=== PATIENT | female | born 1990 | race Caucasian/White ===

== ENCOUNTER 2016-06-20 08:09 | Emergency (ER) | payer BC ==
[2016-06-20 08:13] VITALS: BP 151/90
[2016-06-20] MEDS ORDERED: predniSONE TAB* 20 MG PO ONE (08:26)
[2016-06-20] MEDS ORDERED: Ibuprofen TAB* 400 MG PO ONE (08:26)
[2016-06-20] MEDS ORDERED: Acetaminophen TAB* 325 MG PO ONE (08:26)
--- NOTE | 2016-06-20 09:12 | ED ---
Nataliia Bro Janilya, scribed for Lyndsey Martinez MD on 06/20/16 at 0825 . Throat Pain/Nasal Congestion - HPI Summary HPI Summary: A 25 y/o female came in to [facility] presenting w/ a gradual onset of constant sore throat starting last night. Pt also reports low grade fever of 99.2 F. Pt denies cough, runny nose, ear pain, dental pain. Pt states it feels like strep throat. - History of Current Complaint Chief Complaint: EDThroatPain Time Seen by Provider: 06/20/16 08:13 Hx Obtained From: Patient Onset/Duration: Gradual Onset, Lasting Days, Still Present Severity: Moderate Cough: None - Allergies/Home Medications Allergies/Adverse Reactions: Allergies Allergy/AdvReac Type Severity Reaction Status Date / Time Amoxicillin Allergy Rash Verified 06/20/16 08:20 PMH/Surg Hx/FS Hx/Imm Hx Previously Healthy: Yes Endocrine/Hematology History: Denies: Hx Anticoagulant Therapy, Hx Diabetes, Hx Thyroid Disease Cardiovascular History: Denies: Hx Hypertension, Hx Pacemaker/ICD Respiratory History: Reports: Other Respiratory Problems/Disorders - hx mono Denies: Hx Asthma, Hx Chronic Obstructive Pulmonary Disease (COPD) GI History: Denies: Hx Ulcer History: Denies: Hx Renal Disease Sensory History: Denies: Hx Contacts or Glasses, Hx Hearing Aid Opthamlomology History: Denies: Hx Contacts or Glasses Neurological History: Reports: Other Neuro Impairments/Disorders - mono Denies: Hx Dementia, Hx Seizures Psychiatric History: Denies: Hx Panic Disorder, Hx Substance Abuse - Immunization History Date of Tetanus Vaccine: unknown Date of Influenza Vaccine: unknown Infectious Disease History: No Infectious Disease History: Denies: Hx Hepatitis, Hx Human Immunodeficiency Virus (HIV), Traveled Outside the [place] in Last 30 Days - Family History Known Family History: Negative: Cardiac Disease, Hypertension, Diabetes - Social History Occupation: Employed Full-time Lives: With Family Alcohol Use: None Substance Use Type: Reports: None Hx Tobacco Use: Yes Smoking Status (MU): Light Every Day Tobacco Smoker Type: Cigarettes Review of Systems Positive: Fever Positive: Sore Throat. Negative: Dental Pain, Ear Ache, Nasal Discharge Negative: Cough All Other Systems Reviewed And Are Negative: Yes Physical Exam Triage Information Reviewed: Yes Vital Signs On Initial Exam: Initial Vitals Temp Pulse Resp BP Pulse Ox 97.3 F 118 16 151/90 100 06/20/16 08:11 06/20/16 08:11 06/20/16 08:11 06/20/16 08:11 06/20/16 08:11 Vital Signs Reviewed: Yes Appearance: Positive: Well-Appearing, No Pain Distress Skin: Positive: Warm, Skin Color Reflects Adequate Perfusion, Dry Eyes: Positive: EOMI, EDDIE ENT: Positive: Pharynx normal, TMs normal. Negative: Tonsillar swelling, Tonsillar exudate Neck: Positive: Supple, Nontender, Other: - Mild lymphadenopathy submental. No posterior lymphadenopathy.. Negative: No Lymphadenopathy Respiratory/Lung Sounds: Positive: Clear to Auscultation, Breath Sounds Present. Negative: Rales, Rhonchi, Wheezes Cardiovascular: Positive: RRR. Negative: Murmur, Rub, Other - no gallops Abdomen Description: Positive: Nontender, Soft. Negative: Distended, Guarding Bowel Sounds: Positive: Present Musculoskeletal: Positive: Strength/ROM Intact. Negative: Edema Left, Edema Right Neurological: Positive: Sensory/Motor Intact, Alert, Oriented to Person Place, Time, CN Intact II-III Psychiatric: Positive: Affect/Mood Appropriate Diagnostics - Vital Signs Vital Signs Temp Pulse Resp BP Pulse Ox 06/20/16 08:11 97.3 F 118 16 151/90 100 - Laboratory Lab Results: Lab Results 06/20/16 Range/Units 08:34 Group A Strep Rapid Negative (Negative) Lab Statement: Any lab studies that have been ordered have been reviewed, and results considered in the medical decision making process. EENT Course/Dx - Course Course Of Treatment: pt with neg strep given one dose of steroids here ok to follow up with pmd - Diagnoses Provider Diagnoses: Pharyngitis Discharge - Discharge Plan Condition: Stable Disposition: HOME The documentation as recorded by the Nataliia manuel Janilya accurately reflects the service I personally performed and the decisions made by me, Lyndsey Martinez MD.
== END 2016-06-20 09:23 | disposition home or self-care (01) ==
LOC: ED 08:09
DX: J02.9 Acute pharyngitis, unspecified (principal); R50.9 Fever, unspecified; F17.210 Nicotine dependence, cigarettes, uncomplicated
CPT/HCPCS: 87651; 99282; A9270-GY; J7512

== ENCOUNTER 2017-03-12 09:12 | Emergency (ER) | payer BC ==
[2017-03-12 09:38] VITALS: BP 116/65
--- NOTE | 2017-03-13 17:46 | UC ---
Trinity Bro Thomas, scrib[facility] for [facility] on 03/12/17 at 0919 . Throat Pain/Nasal Kapil HPI - HPI Summary HPI Summary: In Room Note: The patient is a 26 year old female presenting to Urgent Care complaining of a sore throat for the last 3-4 days. The pain is aggravated by swallowing and is alleviated by nothing. The patient has treated the sore throat with Advil and bob seltzer prior to arrival. Pt additionally complains of nasal discharge, head congestion, and cough with green production. Note: 26 year old female with a sore throat. Review of visit history shows multiple visits for sore throat including May 2016, with a negative Rapid Strep at that time. History of [place]. She is allergic to amoxicillin. VSS, afebrile, Pulse Ox 98. Patient is a smoker, URI symptoms including sore throat. Nurses Note: c/o stuffy nose, head congestion, and sore throat for a few days. she has been taking bob seltzer and advil. - History of Current Complaint Stated Complaint: THROAT PAIN Time Seen by Provider: 03/12/17 09:17 Hx Obtained From: Patient Hx Last Menstrual Period: 2 weeks ago Onset/Duration: Lasting Days - 3-4, Still Present Severity: Moderate Cough: Productive Associated Signs & Symptoms: Positive: Nasal Discharge, Other - head congestion , cough with green production Related History: Smoking - Allergies/Home Medications Allergies/Adverse Reactions: Allergies Allergy/AdvReac Type Severity Reaction Status Date / Time Amoxicillin Allergy Rash Verified 03/12/17 09:37 Home Medications: Home Medications NK [No Home Medications Reported] 03/12/17 [History Confirmed 03/12/17] PMH/Surg Hx/FS Hx/Imm Hx Previously Healthy: Yes - NEGATIVE: DM, HTN Other History Of: Negative For: Anticoagulant Therapy - Surgical History Surgical History: None - Family History Known Family History: Negative: Cardiac Disease, Hypertension, Diabetes - Social History Occupation: Employed Full-time Lives: With Family Alcohol Use: None Substance Use Type: None Smoking Status (MU): Light Every Day Tobacco Smoker Type: Cigarettes Review of Systems ENT: Sore Throat, Nasal Discharge, Other - Head congestion Respiratory: Cough - with green production Is Patient Immunocompromised?: No All Other Systems Reviewed And Are Negative: Yes - Comments Additional Review of Systems Comments: A 12 point review of systems was completed and significantly positive for: cough , sore throat, nasal discharge, nasal congestion. The remainder of the review was negative except as stated above in the HPI. Physical Exam Triage Information Reviewed: Yes Vital Signs: Initial Vital Signs Temp 98.4 F 03/12/17 09:35 Pulse 90 03/12/17 09:35 Resp 16 03/12/17 09:35 BP 116/65 03/12/17 09:35 Pulse Ox 98 03/12/17 09:35 Vital Signs Reviewed: Yes Eye Exam: Normal ENT: Positive: Other - The throat has mild erythema. There is no exudate. Dental Exam: Normal Neck exam: Normal Neck: Positive: 1 Respiratory Exam: Normal Cardiovascular Exam: Normal Cardiovascular: Positive: Other: - The lungs are clear to auscultation. Abdominal Exam: Normal Musculoskeletal Exam: Normal Neurological Exam: Normal Psychological Exam: Normal Skin Exam: Normal Throat Pain/Nasal Course/Dx - Course Course Of Treatment: Normal BP reading and no follow-up instructions required. Rapid Strep is negative. Medications have been included in the original chart and reviewed. - Differential Dx/Diagnosis Differential Diagnosis/HQI/PQRI: Other - URI vs Strep Throat Provider Diagnoses: URI Discharge - Discharge Plan Condition: Stable Disposition: HOME Patient Education Materials: Upper Respiratory Infection (ED) Referrals: No Primary Care Phys,NOPCP [Primary Care Provider] - Additional Instructions: Thank you for helping us improve patient care by filling out the My Point Survey. WE DISCUSSED: 1. Your rapid strep was negative. 2. You have a viral illness. This should go away over the next 10 days. Try to stop smoking. 3. See instructions below. PLEASE SEEK CARE AT THE EMERGENCY DEPARTMENT IF SYMPTOMS WORSEN OR IF NEW SYMPTOMS DEVELOP. FOLLOW UP WITH YOUR PRIMARY CARE PHYSICIAN. USEFUL WAYS TO FEEL BETTER WITHOUT MEDICATIONS: STAND UNDER SHOWER STREAM TO LOOSEN SECRETIONS. USE A VAPORIZOR. STAY AWAY FROM ANY SMOKE OR IRRITANTS. USE SALINE NASAL SPRAY TO KEEP FLOW OF MUCOUS FROM NOSTRILS AND SINUSES. CONSIDER USING NETI POT TO HELP WITH ALLERGIES AND CONGESTION IN THE NOSE. USE THIS THREE TIMES A WEEK. YOU CAN GET THIS AT [facility] IN [place] OR VARIOUS DRUGSTORES. DRINK LOTS OF WARM FLUIDS USEFUL HOME REMEDIES: WARM WATER GARGLES, WITH TSP OF SALT PER 8 OUNCES OF WATER, GARGLE FOR A FEW SECONDS AND SPIT OUT; GARGLE AND SPIT OUT; EVERY THREE HOURS. AND/OR: WARM WATER OR TEA, HONEY AND LEMON; 2-3 CUPS A DAY. FOR SORE THROAT: KEEP THROAT MOIST WITH LOZENGES; TEA AND HONEY. USE WARM WATER GARGLES 3-4 TIMES A DAY. FOLLOW UP: RE-CHECK IN 1O DAYS, NEEDED, IF YOU ARE NOT IMPROVING. RETURN HERE OR SEE YOUR PHYSICIAN. RE-CHECK SOONER IF INCREASED PAIN OR TEMPERATURE. The documentation as recorded by the Trinity manuel Thomas accurately reflects the service I personally performed and the decisions made by me, Harvinder Mays MD.
== END 2017-03-12 10:21 | disposition home or self-care (01) ==
LOC: UCEAST 09:12
DX: J06.9 Acute upper respiratory infection, unspecified (principal); F17.210 Nicotine dependence, cigarettes, uncomplicated
CPT/HCPCS: 87651; 99211; G0463

== ENCOUNTER 2017-11-15 19:11 | Emergency (ER) | payer SELFPAY ==
[2017-11-15 20:35] LABS: ABS Basophils 0.1 10^3/ul (0-0.2); ABS Eosinophils 0.3 10^3/ul (0-0.6); ABS Lymphocytes 2.9 10^3/ul (1.0-4.8); ABS Monocytes 0.6 10^3/ul (0-0.8); ABS Neutrophils 7.7 10^3/ul (1.5-7.7); ABS Nucleated RBC 0 10^3/ul; Eosinophil % 2.8 % (0-6); Hematocrit 45 % (35-47); Hemoglobin 15.5 g/dl (12.0-16.0); Lymphocyte % 25.1 % (25-47); Mean Corpuscular HGB Conc 35 g/dl (31-36); Mean Corpuscular Hemoglobin 34 pg (27-31); Mean Corpuscular Volume 97 fL (80-97); Mean Platelet Volume 10.2 um3 (7.4-10.4); Nucleated Red Blood Cells % 0.1; Platelet Count 171 10^3/ul (150-450); Red Blood Count 4.64 10^6/ul (4.00-5.40); Red Cell Distribution Width 13 % (10.5-15); White Blood Count 11.6 10^3/ul (3.5-10.8)
[2017-11-15 20:53] LABS: EGFR Non-African American 88.6 (>60)
--- NOTE | 2017-11-15 22:43 | RAD ---
EXAM: US Pelvis, Transvaginal CLINICAL HISTORY: 26 years old, female; Pain; Pelvic pain; Patient HX: Llq pain for 2 days TECHNIQUE: Real-time transvaginal pelvic ultrasound (complete) with image documentation. Transvaginal imaging was used for better evaluation of the endometrium and adnexa. COMPARISON: No relevant prior studies available. FINDINGS: Uterus/cervix: Anteverted anteflexed. Measures 7.0 x 4.3 x 3.4 cm (53 cc). No myometrial masses. Late proliferative phase endometrium measuring 1.0 cm. Tiny volume endometrial canal fluid in the cervix. Right ovary: Right ovary measures 2.9 x 2.1 x 1.6 cm (5.1 cc). Normal size and echogenicity with no masses. Normal follicles. Normal arterial and venous waveforms. Left ovary: Left ovary measures 3.2 x 1.8 x 1.5 cm (4.5 cc). Normal size and echogenicity with no masses. Normal follicles. Normal arterial and venous waveforms. Normal blood flow. Free fluid: No free fluid. Bladder: Empty bladder which cannot be evaluated with this probe. IMPRESSION: Sonographically normal uterus and ovaries.
--- NOTE | 2017-11-15 22:59 | ED ---
Abdominal Pain/Female - HPI Summary HPI Summary: Patient complains of acute on chronic left lower quadrant pain for the past 2 days. Patient states pain is intermittent, rated 8 out of 10, worse with walking, described as sharp and crampy. History of same for one year, states pain usually goes away sooner than this. Patient also states chronic pain seems to be getting progressively worse. Denies fever, cough, sore throat, CP, SOB, N /V/D, ch. steff in urine, vaginal symptoms, change in BM, back pain. Drinking fluids normally, decreased appetite, as patient feels pain is worsened with food. Denies prior evaluation of this pain. Medical history is none. Abdominal/pelvic surgical history is none. LMP 1 week ago. - History of Current Complaint Chief Complaint: EDAbdPain Stated Complaint: ABD PAIN Time Seen by Provider: 11/15/17 20:30 Hx Obtained From: Patient Hx Last Menstrual Period: 2 weeks ago ?: No Onset/Duration: Sudden Onset Timing: Intermittent Episode Lasting Severity Initially: Severe Severity Currently: Severe Pain Intensity: 10 Pain Scale Used: 0-10 Numeric Location: Discrete At: LLQ Radiates: No Character: Sharp, Cramping Aggravating Factor(s): Food Alleviating Factor(s): Nothing Associated Signs and Symptoms: Positive: Negative Allergies/Adverse Reactions: Allergies Allergy/AdvReac Type Severity Reaction Status Date / Time amoxicillin Allergy Rash Verified 11/15/17 19:16 PMH/Surg Hx/FS Hx/Imm Hx Endocrine/Hematology History: Denies: Hx Anticoagulant Therapy, Hx Diabetes, Hx Thyroid Disease Cardiovascular History: Denies: Hx Hypertension, Hx Pacemaker/ICD Respiratory History: Reports: Other Respiratory Problems/Disorders - hx mono Denies: Hx Asthma, Hx Chronic Obstructive Pulmonary Disease (COPD) GI History: Denies: Hx Ulcer History: Denies: Hx Renal Disease Sensory History: Denies: Hx Contacts or Glasses, Hx Hearing Aid Opthamlomology History: Denies: Hx Contacts or Glasses Neurological History: Reports: Other Neuro Impairments/Disorders - mono Denies: Hx Dementia, Hx Seizures Psychiatric History: Denies: Hx Panic Disorder, Hx Substance Abuse - Immunization History Date of Tetanus Vaccine: unknown Date of Influenza Vaccine: unknown Infectious Disease History: No Infectious Disease History: Denies: Hx Hepatitis, Hx Human Immunodeficiency Virus (HIV), Traveled Outside the [place] in Last 30 Days - Family History Known Family History: Negative: Cardiac Disease, Hypertension, Diabetes - Social History Alcohol Use: None Substance Use Type: Reports: None Hx Tobacco Use: Yes Smoking Status (MU): Light Every Day Tobacco Smoker Type: Cigarettes Review of Systems Constitutional: Negative Eyes: Negative ENT: Negative Cardiovascular: Negative Respiratory: Negative Positive: Abdominal Pain Genitourinary: Negative Musculoskeletal: Negative Skin: Negative Neurological: Negative Psychological: Normal All Other Systems Reviewed And Are Negative: Yes Physical Exam - Summary Physical Exam Summary: Minimal pain with palpation of left lower quadrant. No pain with palpation of all other quadrants. Triage Information Reviewed: Yes Vital Signs On Initial Exam: Initial Vitals Temp Pulse Resp BP Pulse Ox 97.5 F 84 18 141/92 99 11/15/17 19:13 11/15/17 19:13 11/15/17 19:13 11/15/17 19:13 11/15/17 19:13 Vital Signs Reviewed: Yes Appearance: Positive: Well-Appearing Skin: Positive: Warm Head/Face: Positive: Normal Head/Face Inspection Eyes: Positive: Normal Neck: Positive: Supple Respiratory/Lung Sounds: Positive: Clear to Auscultation Cardiovascular: Positive: Normal Abdomen Description: Positive: Other: Musculoskeletal: Positive: Normal Neurological: Positive: Normal Psychiatric: Positive: Normal AVPU Assessment: Alert - Catrachito Coma Scale Best Eye Response: 4 - Spontaneous Best Motor Response: 6 - Obeys Commands Best Verbal Response: 5 - Oriented Coma Scale Total: 15 Diagnostics - Vital Signs Vital Signs Temp Pulse Resp BP Pulse Ox 11/15/17 19:13 97.5 F 84 18 141/92 99 - Laboratory Lab Results: Lab Results 11/15/17 11/15/17 11/15/17 Range/Units 20:29 20:29 20:29 WBC 11.6 H (3.5-10.8) 10^3/ul RBC 4.64 (4.00-5.40) 10^6/ul Hgb 15.5 (12.0-16.0) g/dl Hct 45 (35-47) % MCV 97 (80-97) fL MCH 34 H (27-31) pg MCHC 35 (31-36) g/dl RDW 13 (10.5-15) % Plt Count 171 (150-450) 10^3/ul MPV 10.2 (7.4-10.4) um3 Neut % (Auto) 65.9 (38-83) % Lymph % (Auto) 25.1 (25-47) % Rock % (Auto) 5.3 (0-7) % Eos % (Auto) 2.8 (0-6) % Baso % (Auto) 0.9 (0-2) % Absolute Neuts (auto) 7.7 (1.5-7.7) 10^3/ul Absolute Lymphs (auto) 2.9 (1.0-4.8) 10^3/ul Absolute Monos (auto) 0.6 (0-0.8) 10^3/ul Absolute Eos (auto) 0.3 (0-0.6) 10^3/ul Absolute Basos (auto) 0.1 (0-0.2) 10^3/ul Absolute Nucleated RBC 0 10^3/ul Nucleated RBC % 0.1 Sodium 137 (135-145) mmol/L Potassium 4.1 (3.5-5.0) mmol/L Chloride 103 (101-111) mmol/L Carbon Dioxide 29 (22-32) mmol/L Anion Gap 5 (2-11) mmol/L BUN 15 (6-24) mg/dL Creatinine 0.78 (0.51-0.95) mg/dL Est GFR ( Amer) 107.2 (>60) Est GFR (Non-Af Amer) 88.6 (>60) BUN/Creatinine Ratio 19.2 (8-20) Glucose 104 H (70-100) mg/dL Lactic Acid 0.5 (0.5-2.0) mmol/L Calcium 9.3 (8.6-10.3) mg/dL Total Bilirubin 1.10 H (0.2-1.0) mg/dL AST 13 (13-39) U/L ALT 15 (7-52) U/L Alkaline Phosphatase 60 (34-104) U/L C-Reactive Protein 2.49 (<8.01) mg/L Total Protein 7.0 (6.4-8.9) g/dL Albumin 4.5 (3.2-5.2) g/dL Globulin 2.5 (2-4) g/dL Albumin/Globulin Ratio 1.8 (1-3) Lipase 32 (11.0-82.0) U/L Beta HCG, Quant < 0.60 mIU/mL Result Diagrams: 11/15/17 20:29 11/15/17 20:29 Lab Statement: Any lab studies that have been ordered have been reviewed, and results considered in the medical decision making process. - Ultrasound No standard instances Ultrasound Interpretation: No Acute Changes - Ultrasound transvaginal negative. Ultrasound Interpretation Completed By: Radiologist Abdominal Pain Fem Course/Dx - Course Course Of Treatment: Patient complains of acute on chronic left lower quadrant pain for the past 2 days. Patient states pain is intermittent, rated 8 out of 10, worse with walking, described as sharp and crampy. History of same for one year, states pain usually goes away sooner than this. Patient also states chronic pain seems to be getting progressively worse. Denies fever, cough, sore throat, CP, SOB, N/V/D, ch. steff in urine, vaginal symptoms, change in BM, back pain. Drinking fluids normally, decreased appetite, as patient feels pain is worsened with food. Denies prior evaluation of this pain. Medical history is none. Abdominal/pelvic surgical history is none. LMP 1 week ago. Ultrasound transvaginal negative. Labs unremarkable. Vital signs within normal limits and stable. Patient opted not to do CT. Ultrasound was negative. Vital signs within normal limits and stable. Labs unremarkable. Patient will follow up with [facility] and GI. - Diagnoses Provider Diagnoses: Left sided abdominal pain Discharge - Sign-Out/Discharge Documenting (check all that apply): Patient Departure - Discharge Plan Condition: Stable Disposition: HOME Prescriptions: HYDROcodone/ACETAMIN 5-325 MG* [[place] 5-325 TAB*] 1 tab PO Q6H PRN 2 Days #6 tab MDD 4 tabs PRN Reason: Pain Patient Education Materials: Acute Abdominal Pain (ED) Referrals: Maci Bran MD [Primary Care Provider] - Mike Orr MD [Medical Doctor] - Lavon Chanel DO [Doctor of Osteopathy] - Additional Instructions: Follow up with [facility] and gastroenterology. Return to the ED for any new or worsening symptoms - Billing Disposition and Condition Condition: STABLE Disposition: Home
[2017-11-15 23:09] VITALS: BP 123/77
== END 2017-11-15 23:12 | disposition home or self-care (01) ==
LOC: ED 19:11
DX: R10.32 Left lower quadrant pain (principal); Z88.0 Allergy status to penicillin; F17.210 Nicotine dependence, cigarettes, uncomplicated
CPT/HCPCS: 36415; 76830; 80053; 83605; 83690; 84702; 85025; 86140; 99283

== ENCOUNTER → 2018-01-26 19:37 | Emergency (ER) | payer BC ==
--- NOTE | 2018-01-26 20:56 | ED ---
Burn - HPI Summary HPI Summary: 27-year-old female presents with burn to left ring finger a couple days ago. She states she burnt it making candy apples. she is right handed. She states where blisters to the area but they pop. She has been using Silvadene on the area. She states she just wants a wound check. She denies any spreading redness. No fevers. No chills. States that this area has been time. Has been taking ibuprofen for the pain which has been helping. - History of Current Complaint Chief Complaint: EDExtremityUpper Stated Complaint: LT RING FINGER INJURY Time Seen by Provider: 01/26/18 20:14 Hx Last Menstrual Period: 2 weeks ago Pain Intensity: 10 - Allergy/Home Medications Allergies/Adverse Reactions: Allergies Allergy/AdvReac Type Severity Reaction Status Date / Time amoxicillin Allergy Rash Verified 01/26/18 19:51 PMH/Surg Hx/FS Hx/Imm Hx Endocrine/Hematology History: Denies: Hx Anticoagulant Therapy, Hx Diabetes, Hx Thyroid Disease Cardiovascular History: Denies: Hx Hypertension, Hx Pacemaker/ICD Respiratory History: Reports: Other Respiratory Problems/Disorders - hx mono Denies: Hx Asthma, Hx Chronic Obstructive Pulmonary Disease (COPD) GI History: Denies: Hx Ulcer History: Denies: Hx Renal Disease Sensory History: Denies: Hx Contacts or Glasses, Hx Hearing Aid Opthamlomology History: Denies: Hx Contacts or Glasses Neurological History: Reports: Other Neuro Impairments/Disorders - mono Denies: Hx Dementia, Hx Seizures Psychiatric History: Denies: Hx Panic Disorder, Hx Substance Abuse - Immunization History Date of Tetanus Vaccine: unknown Date of Influenza Vaccine: unknown Infectious Disease History: No Infectious Disease History: Denies: Hx Hepatitis, Hx Human Immunodeficiency Virus (HIV), Traveled Outside the [place] in Last 30 Days - Family History Known Family History: Negative: Cardiac Disease, Hypertension, Diabetes - Social History Alcohol Use: None Substance Use Type: Reports: None Hx Tobacco Use: Yes Smoking Status (MU): Light Every Day Tobacco Smoker Type: Cigarettes Review of Systems Negative: Fever Negative: Chest Pain Positive: Other - burn left ring finger All Other Systems Reviewed And Are Negative: Yes Physical Exam Triage Information Reviewed: Yes Vital Signs On Initial Exam: Initial Vitals Temp Pulse Resp BP Pulse Ox 97.9 F 89 16 130/74 99 01/26/18 19:46 01/26/18 19:46 01/26/18 19:46 01/26/18 19:46 01/26/18 19:46 Vital Signs Reviewed: Yes Appearance: Positive: Well-Appearing Skin: Positive: Warm, Dry, Other - 2cm by 2cm blister type lesion of left ring finger Head/Face: Positive: Normal Head/Face Inspection Eyes: Positive: Normal, Conjunctiva Clear ENT: Positive: Pharynx normal Respiratory/Lung Sounds: Positive: Clear to Auscultation, Breath Sounds Present Cardiovascular: Positive: Normal, RRR Musculoskeletal: Positive: Strength/ROM Intact - left ring finger, Other - capillary refill<2 secs Neurological: Positive: Normal Psychiatric: Positive: Normal Burn Calculation - The [place] Formula for Fluid Resuscitation Weight: 72.575 kg 24 -Hour Fluid Replacement: 0.0 Diagnostics - Vital Signs Vital Signs Temp Pulse Resp BP Pulse Ox 01/26/18 19:46 97.9 F 89 16 130/74 99 - Laboratory Lab Statement: Any lab studies that have been ordered have been reviewed, and results considered in the medical decision making process. Burn Course/Dx - Course Course Of Treatment: 27-year-old female presents with burn to left ring finger a couple days ago. She states she burnt it making candy apples. she is right handed. She states where blisters to the area but they pop. She has been using Silvadene on the area. She states she just wants a wound check. She denies any spreading redness. No fevers. No chills. States that this area has been time. Has been taking ibuprofen for the pain which has been helping. On exam has 2 cm x 2 cm blister-type area on left ring. No evidence of dehiscence. No evidence cellulitis. Told to continue placing the Silvadene. Told to elevate. Explained symptoms that should return to ED for. Patient understands agrees with plan. - Diagnoses Differential Diagnoses: Positive: Direct Contact Thermal Burn, Other - cellulitis Provider Diagnosis: Second degree burn of finger Discharge - Sign-Out/Discharge Documenting (check all that apply): Patient Departure - Discharge Plan Condition: Good Disposition: HOME Patient Education Materials: Second Degree Burn (ED) Referrals: Maci Bran MD [Primary Care Provider] - Additional Instructions: Apply silvadene to area twice a day and cover area Take ibuprofen for pain every 6 hour Follow up within primary within 5 days Return to ED if develop fever, spreading redness, or any new or worsening symptoms - Billing Disposition and Condition Condition: GOOD Disposition: Home
[2018-01-26 21:06] VITALS: BP 121/74
== END | disposition home or self-care (01) ==
LOC: ED 19:37
DX: T23.222A Burn of second degree of single left finger (nail) except thumb, initial encounter (principal); X10.1XXA Contact with hot food, initial encounter; Y92.9 Unspecified place or not applicable; F17.210 Nicotine dependence, cigarettes, uncomplicated
CPT/HCPCS: 99282

== ENCOUNTER 2019-03-04 10:02 | Emergency (ER) | payer BC, OTHER ==
--- NOTE | 2019-03-04 10:53 | ED ---
Complex/Multi-Sys Presentation - HPI Summary HPI Summary: The patient is a 28 y/o F presenting to [facility] with a chief complaint of sinus discomfort starting yesterday. She endorses green nasal discharge, intermittent mild nonproductive cough, and pain on the right side of the face behind the eye into the maxilla and into the teeth. She denies measuring a fever, but she has been experiencing a warm sensation. Her symptoms are rated 6/10 in severity. She has not used any medications [employer] to alleviate the pain. PMHx: mononucleosis. Current smoker, no EtOH, no substance use. Medications reviewed. Allergies noted. - History Of Current Complaint Chief Complaint: EDHeadache Time Seen by Provider: 03/04/19 10:18 Hx Obtained From: Patient Onset/Duration: Sudden Onset, Lasting Hours - since last night, Still Present Timing: Hours Severity Currently: Moderate Severity Initially: Mild Location: Pain At: - right facial discomfort Character: Dull Aggravating Factor(s): nothing Alleviating Factor(s): nothing Associated Signs And Symptoms: Positive: Cough - mild nonproductive, Other - sinus discomfort, green rhinorrhea, right-sided facial pain behind eye into maxilla and teeth. Negative: Fever - warm sensation without measuring - Allergies/Home Medications Allergies/Adverse Reactions: Allergies Allergy/AdvReac Type Severity Reaction Status Date / Time amoxicillin Allergy Rash Verified 01/26/18 19:51 PMH/Surg Hx/FS Hx/Imm Hx Endocrine/Hematology History: Denies: Hx Anticoagulant Therapy, Hx Diabetes, Hx Thyroid Disease Cardiovascular History: Denies: Hx Hypertension, Hx Pacemaker/ICD Respiratory History: Reports: Other Respiratory Problems/Disorders - hx mono Denies: Hx Asthma, Hx Chronic Obstructive Pulmonary Disease (COPD) GI History: Denies: Hx Ulcer History: Denies: Hx Renal Disease Sensory History: Denies: Hx Contacts or Glasses, Hx Hearing Aid Opthamlomology History: Denies: Hx Contacts or Glasses Neurological History: Reports: Other Neuro Impairments/Disorders - mono Denies: Hx Dementia, Hx Seizures Psychiatric History: Denies: Hx Panic Disorder, Hx Substance Abuse - Surgical History Surgical History: None Surgery Procedure, Year, and Place: none - Immunization History Date of Tetanus Vaccine: unknown Date of Influenza Vaccine: unknown Infectious Disease History: No Infectious Disease History: Denies: Hx Hepatitis, Hx Human Immunodeficiency Virus (HIV), Traveled Outside the [place] in Last 30 Days - Family History Known Family History: Negative: Cardiac Disease, Hypertension, Diabetes - Social History Alcohol Use: None Hx Substance Use: No Substance Use Type: Reports: None Hx Tobacco Use: Yes Smoking Status (MU): Light Every Day Tobacco Smoker Type: Cigarettes Review of Systems Negative: Fever - warm sensation without measurement Positive: Nasal Discharge - green, Other - sinus congestion, right-sided facial pain behind eye into maxilla and teeth Positive: Cough - mild, nonproductive All Other Systems Reviewed And Are Negative: Yes Physical Exam - Summary Physical Exam Summary: Constitutional: Well-developed, Well-nourished, Alert. (-) Distressed Skin: Warm, Dry HENT: Mild tenderness of the right maxilla; Normocephalic; Atraumatic Eyes: Conjunctiva normal Neck: Cervical lymphadenopathy. Musculoskeletal ROM normal neck. (-) JVD, (-) Stridor, (-) Nuchal rigidity Cardio: Rhythm regular, rate normal, Heart sounds normal; Intact distal pulses; Radial pulses are 2+ and symmetric. (-) Murmur Pulmonary/Chest wall: Effort normal. (-) Respiratory distress, (-) Wheezes, (-) Rales Abd: Soft, (-) tenderness, (-) Distension, (-) Guarding, (-) Rebound Musculoskeletal: (-) Edema Lymph: (-) Cervical adenopathy Neuro: Alert, Oriented x3 Psych: Mood and affect Normal Triage Information Reviewed: Yes Vital Signs On Initial Exam: Initial Vitals Temp Pulse Resp BP Pulse Ox 98.4 F 92 16 135/91 99 03/04/19 10:04 03/04/19 10:04 03/04/19 10:04 03/04/19 10:04 03/04/19 10:04 Vital Signs Reviewed: Yes Procedures - Sedation Patient Received Moderate/Deep Sedation with Procedure: No Diagnostics - Vital Signs Vital Signs Temp Pulse Resp BP Pulse Ox 03/04/19 10:04 98.4 F 92 16 135/91 99 - Laboratory Lab Statement: Any lab studies that have been ordered have been reviewed, and results considered in the medical decision making process. Complex Multi-Symp Course/Dx Course Of Treatment: 28 y/o F p/w sinus congestion. - PE well appearing, mild R max sinus tenderness. - afebrile, on day 2 of symptoms. D/w patient decongestants, OTC meds for symptom control. Advised to return for worsening symptoms or if not feeling better in a week. Smoking cessation counseling provided. - Diagnoses Provider Diagnoses: Sinus infection Discharge ED - Sign-Out/Discharge Documenting (check all that apply): Patient Departure - Patient will be discharged home. - Discharge Plan Condition: Good Disposition: HOME Patient Education Materials: Sinusitis (ED) Referrals: Risa Kaufman MD [Primary Care Provider] - 3 Days Additional Instructions: You were seen in the emergency department for sinus infection. Please take Sudafed/Mucinex or a decongestant, you can take Tylenol Motrin as well. Please drink lots of fluids including water or Gatorade. Please follow up with your primary care doctor in the next 2-3 days and return to the emergency department for worsening pain, fevers, if you are feeling worse in a week, or concerning symptoms. It was a pleasure taking care of you today. - Billing Disposition and Condition Condition: GOOD Disposition: Home - Attestation Statements Document Initiated by Ankit: Yes Documenting Scribe: Hermelinda Romero Provider For Whom Ankit is Documenting (Include Credential): Dr. Carmen Barbosa MD Scribe Attestation: I, Hermelinda Romero, scribed for Dr. Carmen Barbosa MD on 03/04/19 at 1122. Scribe Documentation Reviewed: Yes Provider Attestation: The documentation as recorded by the Hermelinda manuel accurately reflects the service I personally performed and the decisions made by me, Dr. Carmen Barbosa MD Status of Scribe Document: Viewed
[2019-03-04 11:06] VITALS: BP 132/89
== END 2019-03-04 11:00 | disposition home or self-care (01) ==
LOC: ED 10:02
DX: J32.9 Chronic sinusitis, unspecified (principal); R05 Cough; Z88.0 Allergy status to penicillin; F17.210 Nicotine dependence, cigarettes, uncomplicated
CPT/HCPCS: 99282